=== PATIENT | male | born 1995 | race Caucasian/White ===

== ENCOUNTER 2017-07-20 18:45 | Emergency (ER) | payer BC, OTHER ==
[~2017-07-20] VITALS: Ht 165.1 cm; Wt 49.9 kg
[2017-07-20 18:49] VITALS: BP 121/61
[2017-07-20] MEDS ORDERED: IBUPROFEN 600 MG TAB PO ONE (21:00)
[2017-07-20] MEDS ORDERED: BACLOFEN 10 MG TAB PO ONE (21:00)
== END 2017-07-20 21:10 | disposition home or self-care (01) ==
LOC: ER 18:52
DX: S16.1XXA Strain of muscle, fascia and tendon at neck level, initial encounter (principal); S00.03XA Contusion of scalp, initial encounter; S40.012A Contusion of left shoulder, initial encounter; S20.212A Contusion of left front wall of thorax, initial encounter; V00.311A Fall from snowboard, initial encounter; Y93.23 Activity, snow (alpine) (downhill) skiing, snowboarding, sledding, tobogganing and snow tubing; Y99.8 Other external cause status; Y92.89 Other specified places as the place of occurrence of the external cause
CPT/HCPCS: 70450; 71101; 72125; 73030